=== PATIENT | female | born 1930 | race Caucasian/White ===

== ENCOUNTER 2018-11-16 18:43 | Inpatient (IN) | payer MEDICARE, OTHER ==
[~2018-11-16] VITALS: Ht 160 cm; Wt 89.4 kg
[2018-11-16] MEDS ORDERED: COLACE100 MG PO (19:25)
[2018-11-16] MEDS ORDERED: FLONASE 0.05%50 MCG NASAL (19:26)
[2018-11-16] MEDS ORDERED: LASIX 40 MG TAB40 M2 PO (19:27)
[2018-11-16] MEDS ORDERED: FUROSEMIDE 20 M20 MG PO (19:27)
[2018-11-16 19:29] LABS: ABSOLUTE BASOPHILS 0.1 thou/uL (0.0-0.2); ABSOLUTE EOSINOPHILS 0.5 thou/uL (0.0-0.7); ABSOLUTE LYMPHOCYTES 1.2 thou/uL (0.8-5.3); ABSOLUTE MONOCYTES 0.6 thou/uL (0.0-1.2); EOSINOPHILS 6.7 %; HEMATOCRIT 33.9 % (37.0-47.0); HEMOGLOBIN 11.4 gm/dL (12.0-15.0); LYMPHOCYTES 16.7 %; MCH 32.2 pg (26.0-34.0); MCHC 33.6 g/dL (28.0-37.0); MCV 95.8 fL (80.0-100.0); MONOCYTES 8.5 %; MPV 9.3 fl. (7.2-11.1); NUCLEATED RBCS 0 /100WBC; PLATELET COUNT* 259 thou/uL (150-400); POLYS 67.1 %; RBC 3.54 mil/uL (4.20-5.00); RDW-CV 13.7 % (10.5-14.5); WBC 7.5 thou/uL (4.0-11.0)
[2018-11-16] MEDS ORDERED: COZAAR 25 MG TA25 M1 PO (19:29)
[2018-11-16] MEDS ORDERED: ALBUTEROL2.5 MG/31 INH (19:29)
[2018-11-16] MEDS ORDERED: LIDOCARE1 EACH TRANSDERM (19:31)
[2018-11-16] MEDS ORDERED: ATIVAN0.5 MG PO (19:31)
[2018-11-16] MEDS ORDERED: MUCINEX600 MG PO (19:32)
[2018-11-16 19:33] LABS: CALCIUM 8.5 mg/dL (8.5-10.1); CREATININE 1.3 mg/dL (0.6-1.3); POTASSIUM 3.8 mmol/L (3.5-5.1); PROTIME 10.1 Seconds (9.20-11.50)
[2018-11-16] MEDS ORDERED: POTASSIUM20 PO (19:33)
[2018-11-16] MEDS ORDERED: SYSTANE 0.3-0.1 EACH OPHTHALMIC (19:33)
[2018-11-16 19:38] LABS: ALBUMIN 3.2 g/dL (3.4-5.0); TOTAL BILIRUBIN 0.2 mg/dL (<0.1-1.0); TOTAL PROTEIN 6.7 g/dL (6.4-8.2)
[2018-11-16 21:10] LABS: URINE BILIRUBIN NEGATIVE (Negative); URINE BLOOD NEGATIVE (Negative); URINE CLARITY CLEAR; URINE COLOR YELLOW; URINE GLUCOSE-RANDOM NEGATIVE (Negative); URINE KETONES NEGATIVE (Negative); URINE LEUKOCYTES-REFLEX 1+ (Negative); URINE NITRITE-REFLEX NEGATIVE (Negative); URINE PROTEIN NEGATIVE (Negative); URINE UROBILINOGEN 0.2 E.U./dl (0.2-1.0)
[2018-11-16 21:22] LABS: BACTERIA-REFLEX >30 Many /HPF (None Seen); HYALINE CASTS 0-3 Few /LPF (None Seen); MUCUS None Seen strn/LPF (None Seen); SQUAMOUS >10 Many /LPF (0-3)
[2018-11-16 21:23] LABS: CRYSTALS None Seen /LPF (None Seen); URINE RBC None Seen /HPF (0-2); URINE WBC-REFLEX 6-15 Few /HPF (0-5); WBC CLUMPS Few (None Seen)
[2018-11-17] VITALS (7 sets, daily range): BP systolic 130–189; BP diastolic 50–76
--- NOTE | 2018-11-17 08:40 | NUR ---
FOOD TRAY OFFERED. PT STATES SHE DOES NOT WANT BREAKFAST AT THIS TIME. SON AT BEDSIDE.
--- NOTE | 2018-11-17 09:57 | NUR ---
DR DONATO AT BEDSIDE
--- NOTE | 2018-11-17 12:51 | NUR ---
PT RECIEVED LUNCH TRAY AT THIS TIME
--- NOTE | 2018-11-17 12:53 | EKG ---
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 : 1930 Requested By: Alka Mejias Order Number: [id number] MD: Sanjeev Hayward Measurements Intervals [place] Rate: 91 P: 48 MS: 183 QRS: -22 QRSD: 94 T: 39 QT: 381 QTc: 469 Interpretive Statements Sinus rhythm Ventricular trigeminy Borderline left axis deviation Probable anterior infarct, old No previous ECG available for comparison Electronically Signed On 11-17-2018 12:52:59 CDT by Sanjeev Hayward [email or web address] <ELECTRONICALLY SIGNED> By: Sanjeev Hayward MD, FACC 11/17/18 1252 38 38 Sanjeev Hayward MD, [facility] /EPI
--- NOTE | 2018-11-17 13:07 | NUR ---
PT UP AMBULATING WITH DAUGHTER
--- NOTE | 2018-11-17 17:18 | NUR ---
PT ADMITTED WITH UTI AND A FALL. PT IS ALERT TO SELF. PT FELL AT [facility]. PT LUNGS CLEAR AND DIMINISHED. PULSES 2+. 1+ PITTING EDEMA LOWER EXTREMITIES. PT X1 WITH WALKER AND GAIT BELT. PT WEARS 2 LITERS O2 AT HOME. PT HIGUERA SOME STRESS INCONTINENCE. ABRASION TO FOREHEAD, PICTURES TAKEN. SKIN TEAR TO RT FA, BANDAGE APPLIED OVER TEAR. PT IS ON [facility]. PT HAS A UTI, ABX GIVEN ORDERED. RT HAND IV WITH NS AT 70. FALL RISK PRECAUTIONS IN PLACE. HOURLY ROUNDING COMPLETED. WILL CONTINUE TO MONITOR.
[2018-11-18 04:45] LABS: ABSOLUTE BASOPHILS 0.1 thou/uL (0.0-0.2); ABSOLUTE EOSINOPHILS 0.4 thou/uL (0.0-0.7); ABSOLUTE LYMPHOCYTES 1.2 thou/uL (0.8-5.3); ABSOLUTE MONOCYTES 0.5 thou/uL (0.0-1.2); ABSOLUTE NEUTROPHILS 3.1 thou/uL (1.6-8.1); BASOPHILS 1.2 %; EOSINOPHILS 7.5 %; HEMATOCRIT 30.4 % (37.0-47.0); HEMOGLOBIN 10.2 gm/dL (12.0-15.0); LYMPHOCYTES 22.8 %; MCH 32.4 pg (26.0-34.0); MCHC 33.5 g/dL (28.0-37.0); MCV 96.6 fL (80.0-100.0); MONOCYTES 9.9 %; MPV 9.6 fl. (7.2-11.1); NUCLEATED RBCS 0 /100WBC; PLATELET COUNT* 206 thou/uL (150-400); POLYS 58.6 %; RBC 3.15 mil/uL (4.20-5.00); RDW-CV 13.4 % (10.5-14.5); WBC 5.2 thou/uL (4.0-11.0)
[2018-11-18 05:14] LABS: CALCIUM 8.3 mg/dL (8.5-10.1); CREATININE 1.1 mg/dL (0.6-1.3); POTASSIUM 4.5 mmol/L (3.5-5.1)
--- NOTE | 2018-11-18 06:39 | NUR ---
PATIENT HAS SLEPT WELL THROUGHOUT THE NIGHT. VSS ON 2L 02 VIA NASAL CANNULA. NO C/O PAIN. PATIENT IS UP WITH ASSIST X 1 WITH GAITBELT AND WALKER TO THE BATHROOM. IV IN RIGHT HAND-NS @ 70ML/HR. FALL PRECAUTIONS IN PLACE AND HOURLY ROUNDS MADE. WILL CONTINUE WITH PLAN OF CARE AND NURSING TO MONITOR.
[2018-11-18 08:00] VITALS: BP 152/50
--- NOTE | 2018-11-18 10:48 | NUR ---
SW met with pt and pt granddtr and pt granddtr's boyfriend in the room. Pt alert, oriented to self. Pt lives in [facility]. Pt has oxygen and RW. Pt and family unsure of any dc needs. SW to continue to follow to assist with safe dc planning if needs arise.
[2018-11-18 15:48] VITALS: BP 128/60
--- NOTE | 2018-11-18 16:12 | 2DMMODE ---
[place] [address] 2 D/M-MODE ECHOCARDIOGRAM Name: MICK PERALTA Room: [address] IN [facility]#: [id number] Admission: 11/16/18 Attend Phys: Karlie Shrestha, Discharge: Date of : [birth year] Date of Service: 11/18/18 1612 Report #: [id number] THIS REPORT FOR: //name// APPROVED REPORT Study performed: 11/18/2018 14:31:23 EXAM: Comprehensive 2D, Doppler, and color-flow Echocardiogram Patient Location: In-Patient Room #: [facility] Status: routine BSA: 1.94 HR: 87 bpm BP: 152/50 mmHg Rhythm: BIGEMINY AND TRIGEMINY Other Information Study Quality: Good Indications Congestive Heart Failure 2D Dimensions IVSd: 11.39 (7-11mm) LVOT Diam: 20.46 (18-24mm) LVDd: 47.87 mm PWd: 10.96 (7-11mm) Ascending Ao: 36.25 (22-36mm) LVDs: 29.55 (25-40mm) Aortic Root: 33.04 mm Volumes Left Atrial Volume (Systole) LA ESV Index: 31.70 mL/m2 Aortic Valve AoV Peak Jean.: 1.55 m/s AO Peak Gr.: 9.64 mmHg LVOT Max P.49 mmHg AO Mean Gr.: 5.42 mmHg LVOT Mean P.04 mmHg LVOT Max V: 1.27 m/s AO V2 VTI: 29.07 cm LVOT Mean V: 0.79 m/s ALANNA (VTI): 3.18 cm2 LVOT V1 VTI: 28.08 cm Mitral Valve E/A Ratio: 0.79 MV Decel. Time: 185.83 ms MV E Max Jean.: 1.14 m/[place] [address] 2 D/M-MODE ECHOCARDIOGRAM Name: PERALTAGEENA LIUENE Room: [address] IN [facility]#: [id number] Admission: 11/16/18 Attend Phys: Karlie Shrestha, Discharge: Date of : [birth year] Date of Service: 11/18/18 1612 Report #: [id number] MV PHT: 53.89 ms MVA (PHT): 4.08 cm2 TDI E/Lateral E': 11.40 E/Medial E': 11.40 Medial E' Jean.: 0.10 m/s Lateral E' Jean.: 0.10 m/s Pulmonary Valve PV Peak Jean.: 0.87 m/s PV Peak Gr.: 3.01 mmHg Tricuspid Valve RAP Estimate: 5.00 mmHg TR Peak Gr.: 30.93 mmHg RVSP: 35.00 mmHg PA Pressure: 35.00 mmHg Left Ventricle The left ventricle is normal size. There is normal LV segmental wall motion. There is normal left ventricular wall thickness. Left ventricular systolic function is normal. The left ventricular ejection fraction is within the normal range. LVEF is 60-65%. The left ventricular diastolic function is normal. Right Ventricle The right ventricle is normal size. The right ventricular systolic function is normal. Atria The left atrium size is normal. The right atrium size is normal. Aortic Valve The aortic valve is normal in structure. No aortic regurgitation is present. There is no aortic valvular stenosis. Mitral Valve There is mitral annular calcification. Mild mitral regurgitation. No evidence of mitral valve stenosis. Tricuspid Valve The tricuspid valve is normal in structure. Mild tricuspid regurgitation. Mild pulmonary hypertension. Pulmonic Valve The pulmonary valve is normal in structure. There is no pulmonic [place] [address] 2 D/M-MODE ECHOCARDIOGRAM Name: MICK PERALTA Room: [address] [place] [facility]#: [id number] Admission: 11/16/18 Attend Phys: Karlie Shrestha, Discharge: Date of : [birth year] Date of Service: 11/18/18 1612 Report #: [id number] Great Vessels The aortic root is normal in size. IVC is normal in size and collapses >50% with inspiration. Pericardium There is no pericardial effusion. <Conclusion> The left ventricle is normal size. There is normal left ventricular wall thickness. Left ventricular systolic function is normal. The left ventricular ejection fraction is within the normal range. LVEF is 60-65%. The right ventricle is normal size. The left atrium size is normal. The aortic valve is normal in structure. There is mitral annular calcification. Mild mitral regurgitation. No evidence of mitral valve stenosis. The tricuspid valve is normal in structure. Mild tricuspid regurgitation. Mild pulmonary hypertension. IVC is normal in size and collapses >50% with inspiration. There is no pericardial effusion. There is normal LV segmental wall motion. <ELECTRONICALLY SIGNED> By: Mateusz Tobias MD, FACC 11/18/181611 11 11 Mateusz Tobias MD, FACC /INF
--- NOTE | 2018-11-18 17:21 | NUR ---
PATIENT RESTING IN BED. PATIENT UP STANDBY ASSIST TO BATHROOM. PATIENT DENIES ANY PAIN. PATIENT HAS GOOD APPETITE. PATIENT DENIES ANY NEEDS AT THIS TIME. CALL LIGHT WITHIN REACH. WILL CONTINUE TO MONITOR.
[2018-11-18 20:40] VITALS: BP 134/57
[2018-11-19 05:07] LABS: CALCIUM 8.8 mg/dL (8.5-10.1); CREATININE 1.2 mg/dL (0.6-1.3); POTASSIUM 3.9 mmol/L (3.5-5.1)
--- NOTE | 2018-11-19 06:04 | NUR ---
PT ORIENTED TO SELF. FORGETFUL. VSS ON 2L NC. PT WAS UP IN BED MOST OF THE SHIFT. PT UP TO BATHROOM THIS SHIFT. PT CALLS OUT APPROPRIATELY. PT DENIES N/P THIS SHIFT. CALL LIGHT WITHIN REACH. HOURLY ROUNDINGS MADE. WILL CONTINUE TO MONITOR.
[2018-11-19 08:05] VITALS: BP 132/48
[2018-11-19] MEDS ORDERED: IPRAT-ALBUT 0.5-3 ML INH (14:50)
[2018-11-19] MEDS ORDERED: ALBUTEROL2.5 MG/0.5 INH (14:51)
--- NOTE | 2018-11-19 15:20 | NUR ---
Pt to dc home to [facility] memory care unit today. RANDEE spoke with pt son Sanjeev who was in pt room about dc plan and pt son to provide pt ride home. RANDEE called the [facility] and provided dc information and referral as needed by fax [phone]. ph [phone]. Provided number for report to pt nurse. chart was copied for continuation of care. [facility] aware of pt to dc home today.
[2018-11-19 15:30] VITALS: BP 132/48
--- NOTE | 2018-11-19 16:15 | NUR ---
PATIENT DISCHARGED TO [facility]. REPORT CALLED TO [facility]. COPY OF CHART AND DISCHARGE PAPERS GIVEN TO SON. DISCHARGE PAPERS REVIEWED AND SIGNED. PRESCRIPTIONS GIVEN. NO IV. PATIENT DENIES ANY FURTHER NEEDS. PATIENT TAKEN BY ELBA TO EXIT. LEFT WITH SON.
== END 2018-11-19 16:15 | disposition hospice, home (50) | DRG 689 ==
LOC: M.ERS 18:43 → M.TBA-ER 22:39 → M.3W 11-17 15:46
PROVIDERS: Emergency Medicine; Family Medicine; Internal Medicine; ADMIT Internal Medicine
DX: N30.00 Acute cystitis without hematuria (principal); G93.41 Metabolic encephalopathy; J96.10 Chronic respiratory failure, unspecified whether with hypoxia or hypercapnia; I50.30 Unspecified diastolic (congestive) heart failure; I13.0 Hypertensive heart and chronic kidney disease with heart failure and stage 1 through stage 4 chronic kidney disease, or unspecified chronic kidney disease; J44.9 Chronic obstructive pulmonary disease, unspecified; G30.9 Alzheimer's disease, unspecified; S09.90XA Unspecified injury of head, initial encounter; E86.0 Dehydration; N18.3 Chronic kidney disease, stage 3 (moderate); F02.80 Dementia in other diseases classified elsewhere, unspecified severity, without behavioral disturbance, psychotic disturbance, mood disturbance, and anxiety; M19.90 Unspecified osteoarthritis, unspecified site; Z85.43 Personal history of malignant neoplasm of ovary; Z85.118 Personal history of other malignant neoplasm of bronchus and lung; Z88.6 Allergy status to analgesic agent; Z88.8 Allergy status to other drugs, medicaments and biological substances; Z79.899 Other long term (current) drug therapy; W07.XXXA Fall from chair, initial encounter; Y93.89 Activity, other specified; Y92.89 Other specified places as the place of occurrence of the external cause; Y99.8 Other external cause status

== ENCOUNTER 2019-01-18 11:04 | Emergency (ER) | payer MEDICARE, OTHER ==
[~2019-01-18] VITALS: Ht 167.6 cm; Wt 90.7 kg
[~2019-01-18 11:04] MED LIST: ALBUTEROL2.5 MG/0.5 INH; ALBUTEROL2.5 MG/31 INH; ATIVAN0.5 MG PO; COLACE100 MG PO; COZAAR 25 MG TA25 M1 PO; FLONASE 0.05%50 MCG NASAL; FUROSEMIDE 20 M20 MG PO; IPRAT-ALBUT 0.5-3 ML INH; LASIX 40 MG TAB40 M2 PO; LIDOCARE1 EACH TRANSDERM; MUCINEX600 MG PO; POTASSIUM20 PO; SYSTANE 0.3-0.1 EACH OPHTHALMIC
[2019-01-18 11:29] LABS: ABSOLUTE BASOPHILS 0.1 thou/uL (0.0-0.2); ABSOLUTE EOSINOPHILS 0.5 thou/uL (0.0-0.7); ABSOLUTE LYMPHOCYTES 1.2 thou/uL (0.8-5.3); ABSOLUTE MONOCYTES 0.6 thou/uL (0.0-1.2); ABSOLUTE NEUTROPHILS 6.4 thou/uL (1.6-8.1); BASOPHILS 0.6 %; EOSINOPHILS 5.3 %; HEMATOCRIT 37.3 % (37.0-47.0); HEMOGLOBIN 12.5 gm/dL (12.0-15.0); LYMPHOCYTES 13.4 %; MCH 31.8 pg (26.0-34.0); MCHC 33.5 g/dL (28.0-37.0); MCV 94.9 fL (80.0-100.0); MONOCYTES 7.2 %; MPV 9.1 fl. (7.2-11.1); NUCLEATED RBCS 0 /100WBC; PLATELET COUNT* 257 thou/uL (150-400); POLYS 73.5 %; RBC 3.93 mil/uL (4.20-5.00); WBC 8.7 thou/uL (4.0-11.0)
[2019-01-18 11:33] LABS: URINE BILIRUBIN NEGATIVE (Negative); URINE BLOOD NEGATIVE (Negative); URINE CLARITY CLEAR; URINE COLOR YELLOW; URINE GLUCOSE-RANDOM NEGATIVE (Negative); URINE KETONES NEGATIVE (Negative); URINE LEUKOCYTES-REFLEX TRACE (Negative); URINE NITRITE-REFLEX NEGATIVE (Negative); URINE PROTEIN NEGATIVE (Negative); URINE UROBILINOGEN 0.2 E.U./dl (0.2-1.0)
[2019-01-18 11:37] LABS: ANION GAP 8 mmol/L (7-16); BUN 26 mg/dL (7-18); CALCIUM 8.8 mg/dL (8.5-10.1); CHLORIDE 101 mmol/L (98-107); CO2 32 mmol/L (21-32); CREATININE 1.3 mg/dL (0.6-1.3); GLUCOSE 132 mg/dL (70-99); POTASSIUM 4.1 mmol/L (3.5-5.1); SODIUM 141 mmol/L (136-145)
[2019-01-18 11:38] LABS: PROTIME 10.3 Seconds (9.20-11.50)
[2019-01-18 11:46] LABS: ALBUMIN 3.5 g/dL (3.4-5.0); ALKALINE PHOSPHATASE 97 U/L (46-116); SGOT 17 U/L (15-37); SGPT 30 U/L (30-65); TOTAL BILIRUBIN 0.3 mg/dL (<0.1-1.0); TOTAL PROTEIN 7.5 g/dL (6.4-8.2); TROPONIN-I LEVEL <0.06 ng/mL (<0.06)
[2019-01-18 11:50] LABS: BACTERIA-REFLEX 1-9 Few /HPF (None Seen); CASTS None Seen /LPF (None Seen); CRYSTALS None Seen /LPF (None Seen); MUCUS None Seen strn/LPF (None Seen); SQUAMOUS 4-10 Moderate /LPF (0-3); URINE RBC 0-2 Rare /HPF (0-2); URINE WBC-REFLEX 0-5 Rare /HPF (0-5)
[2019-01-18] MEDS ORDERED: [UNRECOGNIZED DRUG - OTHER] TOP (11:51)
[2019-01-18] MEDS ORDERED: ATIVAN0.5 MG PO ×2 (11:53)
[2019-01-18] MEDS ORDERED: MUCINEX600 MG PO (11:57)
[2019-01-18] MEDS ORDERED: ALLER-EASE180 MG PO (11:59)
[2019-01-18] MEDS ORDERED: LASIX 20 MG TAB20 MG PO (12:00)
[2019-01-18] MEDS ORDERED: IPRATROPIU0.2 MG/1 M INH (12:02)
[2019-01-18] MEDS ORDERED: SYSTANE ULTRA 010 ML OPHTHALMIC (12:03)
[2019-01-18 12:25] VITALS: BP 169/86
--- NOTE | 2019-01-18 16:23 | EKG ---
[place] [address] ELECTROCARDIOGRAM REPORT Name: PERALTAGEENAMICK Room: [facility]#: [id number] Admission: 01/18/19 Attend Phys: Discharge: 01/18/19 Date of : [birth year] Report #: [id number] THIS REPORT FOR: //name// 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1930 Requested By: Eugene Isidro Order Number: [id number] MD: Enoc Mahan Measurements Intervals [place] Rate: 95 P: 66 ME: 225 QRS: -22 QRSD: 97 T: 56 QT: 379 QTc: 477 Interpretive Statements Sinus rhythm Ventricular premature complex Prolonged ME interval Borderline left axis deviation Borderline prolonged QT interval Compared to ECG 11/16/2018 19:39:16 no change Electronically Signed On 01-18-2019 16:23:20 CDT by Enoc Mahan [email or web address] <ELECTRONICALLY SIGNED> By: Enoc Mahan MD, [facility] 01/18/19 1623 1224 1224 Enoc Mahan MD, [facility] /EPI
== END 2019-01-18 14:05 | disposition short-term general hospital (02) ==
LOC: M.ERS 11:04
PROVIDERS: Family Medicine
DX: S72.092A Other fracture of head and neck of left femur, initial encounter for closed fracture (principal); S12.121A Other nondisplaced dens fracture, initial encounter for closed fracture; J44.9 Chronic obstructive pulmonary disease, unspecified; I50.9 Heart failure, unspecified; G30.9 Alzheimer's disease, unspecified; F02.80 Dementia in other diseases classified elsewhere, unspecified severity, without behavioral disturbance, psychotic disturbance, mood disturbance, and anxiety; Z79.899 Other long term (current) drug therapy; Z79.82 Long term (current) use of aspirin; Z88.6 Allergy status to analgesic agent; Z88.5 Allergy status to narcotic agent; Z91.030 Bee allergy status; W19.XXXA Unspecified fall, initial encounter; Y93.89 Activity, other specified; Y92.89 Other specified places as the place of occurrence of the external cause; Y99.8 Other external cause status